=== PATIENT | female | born 1990 | race Caucasian/White ===

== ENCOUNTER 2018-04-13 11:46 | Emergency (ER) | payer BC ==
[~2018-04-13] VITALS: Ht 160 cm; Wt 68.0 kg
[~2018-04-13 11:46] MED LIST: FLEXERIL PO; IBUPROFEN 800800 M1 PO; LO LOESTRIN FE1 EACH PO; TRAMADOL 50 MG50 MG PO
[2018-04-13] MEDS ORDERED: HYDROCODONE-AP1 EAC6 PO (12:53)
[2018-04-13] MEDS ORDERED: IBUPROFEN 600600 M1 PO (12:53)
[2018-04-13] MEDS ORDERED: PHENERGAN 25 MG25 M1 PO (12:54)
[2018-04-13 13:13] VITALS: BP 125/65
== END 2018-04-13 13:14 | disposition home or self-care (01) ==
LOC: M.ERS 11:46
DX: S62.397A Other fracture of fifth metacarpal bone, left hand, initial encounter for closed fracture (principal); S62.393A Other fracture of third metacarpal bone, left hand, initial encounter for closed fracture; W22.8XXA Striking against or struck by other objects, initial encounter; Y93.89 Activity, other specified; Y92.89 Other specified places as the place of occurrence of the external cause; Y99.8 Other external cause status